=== PATIENT | male | born 1980 | race Caucasian/White ===

== ENCOUNTER 2020-04-15 17:00 | Outpatient (CLI) | payer OTHER, BC | END 2020-04-15 17:01 | disposition home or self-care (01) | LOC: SLEEPLAB 17:00 | PROVIDERS: ATTEND Physician Assistant | DX: G47.33 Obstructive sleep apnea (adult) (pediatric) (principal); G47.10 Hypersomnia, unspecified; R53.83 Other fatigue; E66.9 Obesity, unspecified; I10 Essential (primary) hypertension | CPT/HCPCS: 95806 ==

== ENCOUNTER 2022-01-15 09:08 | Outpatient (CLI) | payer BC | END 2022-01-15 09:09 | disposition home or self-care (01) | LOC: BICRAD 09:08 | PROVIDERS: ATTEND Nurse Practitioner Family | DX: R35.89 Other polyuria (principal); N20.0 Calculus of kidney | CPT/HCPCS: 74018 ==

== ENCOUNTER 2025-02-18 08:22 | Outpatient (CLI) | payer BC | END 2025-02-18 08:23 | disposition home or self-care (01) | LOC: CT 08:22 | PROVIDERS: ATTEND Urology | DX: C67.2 Malignant neoplasm of lateral wall of bladder (principal); R91.1 Solitary pulmonary nodule | CPT/HCPCS: 71260; 78306; A9503 ==